=== PATIENT | male | born 1945 | race African-American/Black ===

== ENCOUNTER 2017-09-02 11:25 | Emergency (ER) | payer BC, OTHER ==
[~2017-09-02] VITALS: Ht 172.7 cm; Wt 87.0 kg
[2017-09-02] MEDS ORDERED: IBUP-2029 PO (11:40)
[2017-09-02] MEDS ORDERED: AMLO5TAB88 PO (11:40)
[2017-09-02] MEDS ORDERED: ATOR10TA69 MT (11:40)
[2017-09-02] MEDS ORDERED: METF10004 MT (11:40)
[2017-09-02] MEDS ORDERED: ASPI-1159 MT (11:40)
[2017-09-02] MEDS ORDERED: NATE120T PO (11:41)
[2017-09-02] MEDS ORDERED: BENA20TA3 PO (11:41)
[2017-09-02] MEDS ORDERED: KETOROLAC 60MG/2ML VIAL IM STA (12:21)
[2017-09-02 14:44] VITALS: BP 132/72
== END 2017-09-02 14:53 | disposition home or self-care (01) ==
LOC: ER 13:04
DX: S20.211A Contusion of right front wall of thorax, initial encounter (principal); F17.200 Nicotine dependence, unspecified, uncomplicated; E11.9 Type 2 diabetes mellitus without complications; I10 Essential (primary) hypertension; E78.00 Pure hypercholesterolemia, unspecified; V89.2XXA Person injured in unspecified motor-vehicle accident, traffic, initial encounter; Z79.899 Other long term (current) drug therapy; Z79.82 Long term (current) use of aspirin; Y93.89 Activity, other specified; Y92.89 Other specified places as the place of occurrence of the external cause; Y99.8 Other external cause status
CPT/HCPCS: 71045; 93005; 96372; 99284; J1885

== ENCOUNTER 2017-09-27 09:45 | Emergency (ER) | payer OTHER ==
[~2017-09-27] VITALS: Ht 172.7 cm; Wt 86.0 kg
[~2017-09-27 09:45] MED LIST: AMLO5TAB88 PO; ASPI-1159 MT; ATOR10TA69 MT; BENA20TA10 PO; IBUP-2029 PO; METF10004 MT; NATE120T PO
[2017-09-27] MEDS ORDERED: LIDOCAINE HCL/PF 1% 10 MG/ML 5ML VIAL IJ ONE (13:45)
[2017-09-27] MEDS ORDERED: TETANUS, DIPHTHERIA, PERTUSSIS VAC/PF 0.5ML (>7YR OLD) IM ONE (13:45)
[2017-09-27] MEDS ORDERED: BACITRACIN ZINC OINT UDPKT TOP ONE (13:45)
[2017-09-27] MEDS ORDERED: KETOROLAC 30MG/ML VIAL IM ONE (13:45)
[2017-09-27 16:02] VITALS: BP 157/89
== END 2017-09-27 16:03 | disposition home or self-care (01) ==
LOC: ER 11:11
DX: M54.2 Cervicalgia (principal); M54.9 Dorsalgia, unspecified; M54.31 Sciatica, right side; I10 Essential (primary) hypertension; E11.9 Type 2 diabetes mellitus without complications; E78.00 Pure hypercholesterolemia, unspecified; F17.200 Nicotine dependence, unspecified, uncomplicated; V89.2XXA Person injured in unspecified motor-vehicle accident, traffic, initial encounter; Y93.89 Activity, other specified; Y92.89 Other specified places as the place of occurrence of the external cause; Y99.8 Other external cause status; Z79.899 Other long term (current) drug therapy; Z79.82 Long term (current) use of aspirin
CPT/HCPCS: 72100; 72125; 82962; 96372; 99284; J1885